=== PATIENT | female | born 1980 | race Caucasian/White ===

== ENCOUNTER 2016-08-27 20:56 | Emergency (ER) | payer MEDICAID, OTHER ==
[~2016-08-27] VITALS: Ht 162.6 cm; Wt 62.0 kg
[~2016-08-27 20:56] MED LIST: VENTAER INH; Z.0.NO CURRENT MEDS; ZITH250T PO
[2016-08-27 20:57] VITALS: BP 118/78; PULSE 74; RESP 16; TEMP 97.7; O2SAT 98
[2016-08-27] MEDS ORDERED: CEPH-460 PO (21:44)
[2016-08-27] MEDS ORDERED: ACYC5OIN4 TOPICAL (21:44)
--- NOTE | 2016-08-27 21:50 | PD ---
HPI Chief Complaint: Skin Problem Time Seen by Provider: 21:48 Travel History International Travel<30 days: No Contact w/Intl Traveler<30days: No Traveled to known affect area: No History of Present Illness HPI 36-year-old white female presents to emergency department with complaints of a cold sore on her lower lip for the past 12 days. She states that she had purchased Abreva a few days ago but has not resolved her lesion. She is concerned that she may be getting a secondary infection from wearing a respirator mask at work. She denies any fever or chills. PFSH Past Medical History Narrative Medical HSV Diminished Hearing: No Tetanus Vaccination: < 5 Years Influenza Vaccination: No ?: Unknown : 4 Para: 2 Miscarriage: 2 Tubal Ligation: Yes Past Surgical History Surgical History: No Previous Surgery Social History Alcohol Use: No Tobacco Use: Yes (3-4 CIG/DAY) Substance Use: No Allergies-Medications (Allergen,Severity, Reaction): Coded Allergies: No Known Allergies (Verified , 08/27/16) Reported Meds & Prescriptions Reported Meds & Active Scripts Active Keflex (Cephalexin) 500 Mg Cap 500 Mg PO Q6H Acyclovir Topical (Acyclovir) 5% Oint 1 Applic TOPICAL Q3HR Review of Systems Except as stated in HPI: all other systems reviewed are Neg General / Constitutional: No: Fever, Chills HENT: No: Sore Throat, Neck Stiffness Cardiovascular: No: Chest Pain or Discomfort, Irregular Rhythm Respiratory: No: Cough, Shortness of Breath Skin: Positive Rash, Positive Lesions Physical Exam Narrative GENERAL: This is a well-nourished, well-developed patient, in no apparent distress. SKIN: Patient has a 1.5 cm erythematous macular region to the lower lip just below the vermilion border. There is some healing vesicular changes. No discharge. HEAD: Atraumatic. Normocephalic. EYES: PERRL, EOMI, no discharge or injection. No scleral icterus. EARS: Clear NOSE: Nasal turbinates appear normal. THROAT: Mucosa pink and moist. Airway patent. NECK: Trachea midline. supple, moves head freely. LUNGS: Clear to auscultation. CV: Regular in rhythm. ABDOMEN: Soft nontender. EXT: No clubbing cyanosis or edema. Data Data Last Documented VS Vital Signs Date Time Temp Pulse Resp B/P Pulse Ox O2 Delivery O2 Flow Rate FiO2 08/27/16 21:24 18 08/27/16 20:57 97.7 74 118/78 98 MDM Medical Decision Making Medical Screen Exam Complete: Yes Emergency Medical Condition: Yes Medical Record Reviewed: Yes Differential Diagnosis MDM: High Differential diagnoses: Abscess, folliculitis, cellulitis, lymphangitis, abrasion, contact dermatitis, HSV Narrative Course Patient is given prescription for Keflex and acyclovir. This is HSV Diagnosis Primary Impression: HSV (herpes simplex virus) infection Patient Instructions: General Instructions Additional Instructions: Rest. Keep clean and dry. Keflex and acyclovir. Follow-up with a medical doctor in one week. Return to the ER for any problems. Med/Other Pt SpecificInfo: Prescription(s) given, Wound Care Scripts Cephalexin (Keflex)500 Mg Oms106 Mg PO Q6H #20 CAP Prov:Antonio Alvares MD 08/27/16 Acyclovir Topical 5% Oint1 Applic TOPICAL Q3HR #5 GM Ref 1 Prov:Antonio Alvares MD 08/27/16 Disposition: 01 DISCHARGE HOME Condition: Stable Logan Ballard Aug 27, 2016 21:50
== END 2016-08-27 21:57 | disposition home or self-care (01) ==
LOC: NEPB 20:56
DX: B00.1 Herpesviral vesicular dermatitis (principal)
CPT/HCPCS: 99283

== ENCOUNTER 2018-01-12 12:28 | Emergency (ER) | payer MEDICAID ==
[~2018-01-12 12:28] MED LIST changes: +ACYC5OIN4 TOPICAL; +CEPH-460 PO; -VENTAER INH; -Z.0.NO CURRENT MEDS; -ZITH250T PO
[2018-01-12 12:35] VITALS: BP 136/62; PULSE 58; RESP 16; TEMP 98; O2SAT 100
--- NOTE | 2018-01-12 13:09 | RADRPT ---
EXAM DATE: 01/12/2018 12:56 PM EDT AGE/SEX: 37 years / Female INDICATIONS: Short of breath. Dizziness. CLINICAL DATA: This is the patient's initial encounter. Patient reports that signs and symptoms have been present for 1 day and indicates a pain score of 6/10. MEDICAL/SURGICAL HISTORY: None. None. COMPARISON: No prior exams available for comparison. FINDINGS: PA and lateral views of the chest demonstrate the lungs to be symmetrically aerated without evidence of mass, infiltrate or effusion. The cardiomediastinal contours are unremarkable. Osseous structures are intact. CONCLUSION: Negative for acute process. Electronically signed by: Corbin Weldon MD 01/12/2018 1:08 PM EDT
[2018-01-12 15:20] VITALS: BP 112/59; PULSE 53; RESP 16; O2SAT 100
--- NOTE | 2018-01-12 15:22 | PD ---
HPI Chief Complaint: Dizziness Time Seen by Provider: 15:04 Travel History International Travel<30 days: No Contact w/Intl Traveler<30days: No Traveled to known affect area: No History of Present Illness HPI 37-year-old female complains of headache, shortness of breath, dizziness, and nausea. Patient states that intermittent headache for the past month. Patient states that headache is mild aching headache frontal head. Patient denies any visual change. Patient denies any neck pain. Patient denies any chest pain. Patient states that she had intermittent shortness of breath. Patient denies abdominal pain. Patient denies any nausea vomiting diarrhea. Patient denies any dysuria frequency. Patient denies any fever chills. Patient denies any back pain. Patient denies any focal weakness or numbness of the extremity. Patient has history of upper GI bleed. Patient states that she was seen at [facility] emergency room a month ago after she vomited blood. Patient was diagnosed with bleeding ulcer. Patient was given medication for that. Patient states that she took medication for the past month and finished taking it. Patient has been seen by local physician. Patient has not been referred to GI specialist. Patient states that she is not on any routine medication now. Patient denies any chance of being . Patient status post tubal ligation. Patient denies any alcohol or illicit drug abuse. 1750 p.m. Patient complains of intermittent substernal chest pressure with radiation to anterior chest for the past 2 weeks. Patient denies any palpitation diaphoresis. Patient states that the pain is not associate with exertion. Patient denies history of CAD. Patient denies history hypertension, diabetes, hyperlipidemia. Patient is a smoker. PFSH Past Medical History Diminished Hearing: No Ulcer: Yes Tetanus Vaccination: < 5 Years Influenza Vaccination: No ?: Not : 4 Para: 2 Miscarriage: 2 Tubal Ligation: Yes Social History Alcohol Use: No Tobacco Use: Yes (3-4 CIG/DAY) Substance Use: No Allergies-Medications (Allergen,Severity, Reaction): Coded Allergies: No Known Allergies (Verified Adverse Reaction, Unknown, 01/12/18) Reported Meds & Prescriptions Reported Meds & Active Scripts Active No Active Prescriptions or Reported Medications Review of Systems General / Constitutional: No: Fever Eyes: No: Visual changes HENT: Positive: Headaches, Lightheadedness Cardiovascular: No: Chest Pain or Discomfort Respiratory: No: Shortness of Breath Gastrointestinal: Positive: Nausea, No: Abdominal Pain Genitourinary: No: Dysuria Musculoskeletal: No: Pain Skin: No Rash Neurologic: No: Weakness Psychiatric: No: Depression Endocrine: No: Polydipsia Hematologic/Lymphatic: No: Easy Bruising Physical Exam Narrative GENERAL: Well-nourished, well-developed patient. SKIN: Focused skin assessment warm/dry. HEAD: Normocephalic. EYES: No scleral icterus. No injection or drainage. NECK: Supple, trachea midline. No JVD or lymphadenopathy. CARDIOVASCULAR: Regular rate and rhythm without murmurs, gallops, or rubs. RESPIRATORY: Breath sounds equal bilaterally. No accessory muscle use. GASTROINTESTINAL: Abdomen soft, non-tender, nondistended. MUSCULOSKELETAL: No cyanosis, or edema. BACK: Nontender without obvious deformity. No CVA tenderness. Neurologic exam: Patient is awake alert oriented 3. No obvious focal neurological deficit. Data Data Last Documented VS Vital Signs Date Time Temp Pulse Resp B/P (MAP) Pulse Ox O2 Delivery O2 Flow Rate FiO2 01/12/18 15:20 53 16 112/59 (76) 100 Room Air 01/12/18 12:35 98.0 Orders Orders Complete Blood Count With Diff (01/12/18 12:37) Comprehensive Metabolic Panel (01/12/18 12:37) Chest, Pa & Lat (01/12/18 ) Urinalysis - C+S If Indicated (01/12/18 12:37) Ed Urine Pregnancytest Poc (01/12/18 12:37) Pantoprazole (Protonix) (01/12/18 16:15) Al-Mag Hy-Si 40-40-4 Mg/Ml Liq (Mag-Al P (01/12/18 16:15) Rpyqq-Rcblyj-Vufhgs-Pb Liq ( Liq (01/12/18 16:15) Creatine Kinase (Cpk) (01/12/18 16:10) Troponin I (01/12/18 16:10) Acetaminophen (Tylenol) (01/12/18 18:00) Ed Discharge Order (01/12/18 18:09) Labs Laboratory Tests Test 01/12/18 15:10 01/12/18 15:55 White Blood Count 6.8 TH/MM3 Red Blood Count 4.47 MIL/MM3 Hemoglobin 9.6 GM/DL Hematocrit 31.4 % Mean Corpuscular Volume 70.3 FL Mean Corpuscular Hemoglobin 21.5 PG Mean Corpuscular Hemoglobin Concent 30.6 % Red Cell Distribution Width 17.1 % Platelet Count 308 TH/MM3 Mean Platelet Volume 7.0 FL Neutrophils (%) (Auto) 54.2 % Lymphocytes (%) (Auto) 36.4 % Monocytes (%) (Auto) 7.3 % Eosinophils (%) (Auto) 1.6 % Basophils (%) (Auto) 0.5 % Neutrophils # (Auto) 3.7 TH/MM3 Lymphocytes # (Auto) 2.5 TH/MM3 Monocytes # (Auto) 0.5 TH/MM3 Eosinophils # (Auto) 0.1 TH/MM3 Basophils # (Auto) 0.0 TH/MM3 CBC Comment DIFF FINAL Differential Comment Blood Urea Nitrogen 7 MG/DL Creatinine 0.72 MG/DL Random Glucose 79 MG/DL Total Protein 7.5 GM/DL Albumin 3.9 GM/DL Calcium Level 8.5 MG/DL Alkaline Phosphatase 57 U/L Aspartate Amino Transf (AST/SGOT) 32 U/L Alanine Aminotransferase (ALT/SGPT) 24 U/L Total Bilirubin 0.2 MG/DL Sodium Level 139 MEQ/L Potassium Level 4.1 MEQ/L Chloride Level 108 MEQ/L Carbon Dioxide Level 24.8 MEQ/L Anion Gap 6 MEQ/L Estimat Glomerular Filtration Rate 92 ML/MIN Urine Color Straw Urine Turbidity HAZY Urine pH 6.0 Urine Specific [place] 1.003 Urine Protein NEG mg/dL Urine Glucose (UA) NEG mg/dL Urine Ketones NEG mg/dL Urine Occult Blood MOD Urine Nitrite NEG Urine Bilirubin NEG Urine Urobilinogen LESS THAN 2 mg/dL Urine Leukocyte Esterase TRACE Urine RBC 3 /hpf Urine WBC LESS THAN 1 /hpf Urine Squamous Epithelial Cells 6 /hpf Urine Bacteria OCC /hpf Microscopic Urinalysis Comment CULT NOT INDICATED MDM Medical Decision Making Medical Screen Exam Complete: Yes Emergency Medical Condition: Yes Interpretation(s) Last Impressions Chest X-Ray 01/12/18 0000 Signed Impressions: CONCLUSION: Negative for acute process. 1745 PM. CBC WBC 6.8. Hemoglobin 9.6 hematocrit 31.4. MCV 70.3. CMP within normal limits. UA is negative. Differential Diagnosis Differential diagnosis including viral syndrome, dehydration, electrolyte imbalance, vertigo, anemia. Narrative Course 37-year-old female with shortness of breath and dizziness. History of intermittent headache in the past. Patient also has intermittent chest pain for the past 2 weeks. Patient has history of ulcer and was seen at [facility] in [facility] a month ago. Patient was advised to stay away for results of blood tests and possible admission to the chest pain center. Patient does not want to be admitted patient wants to leave now before results of blood tests known. Protonix 40 mg p.o. given. Maalox 30 cc p.o. given. 10 cc p.o. given. Tylenol 650 mg p.o. given. Diagnosis Primary Impression: Chest pain Qualified Codes: R07.9 - Chest pain, unspecified Additional Impression: Dizziness Patient Instructions: General Instructions Additional Instructions: Take medications as directed. 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 Return if wish to have further workup for chest pain. Med/Other Pt SpecificInfo: Prescription(s) given Scripts Dicyclomine (Bentyl) 10 Mg Cap 10 MG PO TID Y for Bowel Management, #21 CAP 0 Refills Prov: Antonio Alvares MD 01/12/18 Pantoprazole (Protonix) 40 Mg Tab 40 MG PO DAILY for Reflux, #30 TAB 0 Refills Prov: Antonio Alvares MD 01/12/18 Disposition: 01 DISCHARGE HOME Condition: Stable Antonio Alvares MD Jan 12, 2018 15:22
[2018-01-12 15:35] LABS: AUTOMATED NEUTROPHIL # 3.7 TH/MM3 (1.8-7.7); BASOPHIL % 0.5 % (0.0-2.0); EOSINOPHIL # 0.1 TH/MM3 (0-0.4); EOSINOPHIL % 1.6 % (0.0-4.0); HEMATOCRIT 31.4 % (35.0-46.0); HEMOGLOBIN 9.6 GM/DL (11.6-15.3); LYMPH % 36.4 % (9.0-44.0); LYMPHOCYTE # 2.5 TH/MM3 (1.0-4.8); MEAN CELL VOLUME 70.3 FL (80.0-100.0); MEAN CORPUSCULAR HEMOGLOBIN 21.5 PG (27.0-34.0); MEAN CORPUSCULAR HGB CONC 30.6 % (32.0-36.0); MONO % 7.3 % (0.0-8.0); MONOCYTE # 0.5 TH/MM3 (0-0.9); NEUT % 54.2 % (16.0-70.0); PLATELET COUNT 308 TH/MM3 (150-450); RED BLOOD COUNT 4.47 MIL/MM3 (4.00-5.30); RED CELL DISTRIBUTION WIDTH 17.1 % (11.6-17.2); WHITE BLOOD COUNT 6.8 TH/MM3 (4.0-11.0)
[2018-01-12 16:07] LABS: ALKALINE PHOSPHATASE 57 U/L (45-117); TOTAL BILIRUBIN ADULT 0.2 MG/DL (0.2-1.0); TOTAL PROTEIN 7.5 GM/DL (6.4-8.2)
[2018-01-12] MEDS ORDERED: ALUMINUM/MAGNESIUM/SIMETH 30 ML CUP PO ONE (16:15)
[2018-01-12] MEDS ORDERED: ATROPINE/SCOPOLAM/HYOSCYAM/PB ELIXIR 10 ML CUP PO ONE (16:15)
[2018-01-12] MEDS ORDERED: PANTOPRAZOLE SOD 40 MG DELAYED RELEASE TAB PO ONE (16:15)
[2018-01-12 16:42] LABS: ALBUMIN 3.9 GM/DL (3.4-5.0); ALT (GPT) 24 U/L (10-53); AST (GOT) 32 U/L (15-37); BLOOD UREA NITROGEN 7 MG/DL (7-18); CALCIUM 8.5 MG/DL (8.5-10.1); CHLORIDE 108 MEQ/L (98-107); CREATININE 0.72 MG/DL (0.50-1.00); GLOMERULAR FILTRATION RATE 92 ML/MIN (>89); GLUCOSE,RANDOM 79 MG/DL (74-106); SODIUM (NA) 139 MEQ/L (136-145)
[2018-01-12 16:43] LABS: BICARBONATE 24.8 MEQ/L (21.0-32.0)
[2018-01-12 17:05] LABS: BACTERIA, URINE OCC /hpf; BILIRUBIN, URINE NEG (NEG); BLOOD, URINE MOD (NEG); GLUCOSE,URINE NEG (NEG); KETONE, URINE NEG (NEG); NITRITE,URINE NEG (NEG); SQUAMOUS EPITHELIAL CELL URINE 6 /hpf (0-5); URINE COLOR Straw (YELLW/STRAW); URINE LEUKOCYTE ESTERASE TRACE (NEG)
[2018-01-12] MEDS ORDERED: ACETAMINOPHEN 325 MG TAB PO ONE (18:00)
[2018-01-12] MEDS ORDERED: DICY10 PO (18:13)
[2018-01-12] MEDS ORDERED: PROT40TA PO (18:13)
[2018-01-12 18:18] LABS: TROPONIN I LESS THAN 0.02 NG/ML (0.02-0.05)
--- NOTE | 2018-01-13 15:09 | EKG ---
Date Performed: 01/12/2018 Time Performed: 15:09:46 PTAGE: 37 years EKG: SINUS BRADYCARDIA BORDERLINE ECG NO PREVIOUS TRACING DOCTOR: Efren Arana Interpretating Date/Time 01/13/2018 15:07:26
--- NOTE | 2018-01-13 15:17 | EKG ---
Date Performed: 01/12/2018 Time Performed: 16:06:32 PTAGE: 37 years EKG: SINUS BRADYCARDIA BORDERLINE ECG PREVIOUS TRACING : 01/12/2018 16.06.32 Since previous tracing, no significant change noted DOCTOR: Efren Arana Interpretating Date/Time 01/13/2018 15:15:28
== END 2018-01-12 18:21 | disposition home or self-care (01) ==
LOC: NEPC 12:28
DX: R07.9 Chest pain, unspecified (principal); R42 Dizziness and giddiness; R06.02 Shortness of breath; R51 Headache; F17.210 Nicotine dependence, cigarettes, uncomplicated
CPT/HCPCS: 71046; 80053; 81001; 82550; 84484; 85025; 93005; 99284